=== PATIENT | female | born 1975 | race Native Hawaiian/Other Pacific Islander ===

== ENCOUNTER 2016-08-11 10:19 | Emergency (ER) | payer SELFPAY ==
[2016-08-11 10:22] VITALS: BP 112/74; PULSE 80; TEMP 97.8; O2SAT 100
[2016-08-11 10:23] VITALS: BMI 23.3
[2016-08-11 10:45] VITALS: RESP 18
--- NOTE | 2016-08-11 11:01 | ED PDOC ---
HPI: Female Pain Time Seen by Provider: 08/11/16 10:23 Chief Complaint (Nursing): Female Genitourinary Chief Complaint (Provider): Vaginal bleeding History Per: Patient Additional Complaint(s): 40 yo female, no PMH, presents to ED for evaluation of vaginal bleeding and abdominal cramping since last night, Pt is currently 9 weeks , . Past Medical History Reviewed: Nursing Documentation, Vital Signs Vital Signs: Last Vital Signs Temp 97.8 F 08/11/16 10:38 Pulse 80 08/11/16 10:38 Resp 18 08/11/16 10:38 BP 112/74 08/11/16 10:38 Pulse Ox 100 08/11/16 10:38 - Medical History PMH: No Chronic Diseases - Surgical History Surgical History: No Surg Hx - Family History Family History: States: No Known Family Hx - Living Arrangements Living Arrangements: With Family - Social History Current smoker - smoking cessation education provided: No Alcohol: None Drugs: Denies - Home Medications Home Medications: Ambulatory Orders Medication Instructions Recorded Ibuprofen [Motrin] 600 mg PO Q6 #20 tab 08/11/16 oxyCODONE/Acetaminophen [Percocet 1 ea PO Q6 PRN #5 tab 08/11/16 5/325 mg Tab] - Allergies Allergies/Adverse Reactions: Allergies Allergy/AdvReac Type Severity Reaction Status Date / Time No Known Allergies Allergy Verified 08/11/16 10:38 Review of Systems ROS Statement: Except As Marked, All Systems Reviewed And Found Negative Gastrointestinal: Positive for: Abdominal Pain Genitourinary Female: Positive for: Vaginal Bleeding Physical Exam - Reviewed Nursing Documentation Reviewed: Yes Vital Signs Reviewed: Yes - Physical Exam Appears: Positive for: Well, Non-toxic, No Acute Distress Head Exam: Positive for: ATRAUMATIC, NORMAL INSPECTION, NORMOCEPHALIC Skin: Positive for: Normal Color, Warm, DRY Eye Exam: Positive for: EOMI, Normal appearance, PERRL ENT: Positive for: Normal ENT Inspection Neck: Positive for: Normal, Painless ROM Cardiovascular/Chest: Positive for: Regular Rate, Rhythm Respiratory: Positive for: CNT, Normal Breath Sounds Gastrointestinal/Abdominal: Positive for: Normal Exam, Bowel Sounds, Soft Pelvic Exam: Positive for: External Exam Normal, Active Bleeding, Other ( Cervical OS closed) Back: Positive for: Normal Inspection Extremity: Positive for: Normal ROM Neurologic/Psych: Positive for: Alert, Oriented - Laboratory Results Result Diagrams: 08/11/16 11:40 - ECG O2 Sat by Pulse Oximetry: 100 Medical Decision Making Medical Decision Making: Pt declined analgesics at this time. CBC resulted WNL [id number] B+ US: Impression: There is a gestational sac with yolk sac and pole however no cardiac activity detected. . Collectively these findings of lack of cardiac activity and current vaginal bleeding suggest spontaneous . However followup serial serum beta HCG and serial pelvic ultrasound recommended confirm spontaneous ; or to assess for development of viable intrauterine gestation which is less likely Findings discussed with emergency room PA Aileen Foy at 12:45 p.m. with written down and read back verification. Case discussed with OB on-call, Dr. Delgado, who agreed Pt stable for discharge at this time and to follow up in clinic. Pt educated on plan of action and likely symptoms over next few days. Advised to return o ED if at anytime pain or bleeding become severe Disposition - Clinical Impression Clinical Impression: demise - Patient ED Disposition Is Patient to be Admitted: No - Disposition Disposition: Routine/Home Disposition Time: 13:52 Condition: STABLE Additional Instructions: Follow up in clinic! Return to ED if at anytime condition worsens Prescriptions: Ibuprofen [Motrin] 600 mg PO Q6 #20 tab oxyCODONE/Acetaminophen [Percocet 5/325 mg Tab] 1 ea PO Q6 PRN #5 tab PRN Reason: Pain, Severe (8-10) Instructions: Spontaneous Miscarriage (ED) Forms: [facility] (Jamaican) - POA Present On Arrival: None
[2016-08-11 11:37] LABS: RBC URINE 5 /hpf (0-3); URINE BACTERIA OCC (<OCC); URINE BILIRUBIN NEGATIVE (NEGATIVE); URINE BLOOD MODERATE (NEGATIVE); URINE COLOR YELLOW (YELLOW); URINE GLUCOSE (UA) NEG (Normal); URINE KETONE NEGATIVE (NEGATIVE); URINE LEUKOCYTE ESTERASE NEG Leu/uL (Negative); URINE PROTEIN NEGATIVE (NEGATIVE); WBC URINE 6 /hpf (0-5)
[2016-08-11 11:53] LABS: BASO # 0.1 K/uL (0.0-0.2); EOS # 0.2 K/uL (0.0-0.7); EOS % 2.7 % (0.0-4.0); LYMPH # 1.8 K/uL (1.0-4.3); LYMPH % 22.3 % (20.0-40.0); MEAN CELL VOLUME 79.7 fl (81.0-99.0); MEAN CORPUSCULAR HEMOGLOBIN 25.5 pg (27.0-31.0); MEAN PLATELET VOLUME 9.8 fl (7.2-11.7); MONO # 0.7 K/uL (0.0-0.8); NEUT # 5.2 K/uL (1.8-7.0); NRBC % 0.2 % (0.0-0.0); RED CELL DISTRIBUTION WIDTH 15.2 % (11.5-14.5)
--- NOTE | 2016-08-11 12:52 | US ---
HISTORY: Bleeding in a patient 9 weeks . COMPARISON: No prior study available for comparison TECHNIQUE: Transvaginal sonographic evaluation is performed. FINDINGS: Uterus is anteverted measuring approximately 8.8 x 6.2 x 4.8 cm. No myometrial masses. Cervix is closed measuring 4.66 cm. There is a intrauterine gestational sac. Measurements: Gestational sac: MSD equals 1.72 cm = 6 weeks 0 days Yolk sac: 0.13 cm pole: 0.32 cm = 6 weeks 0 days Heart motion: None detected Average ultrasound age: 6 weeks 0 days +/-0 weeks 3 days. Collectively these findings suggest spontaneous . However follow-up of serial serum beta HCG and serial pelvic ultrasound recommended to confirm spontaneous ; or less likely to assess for development of viable intrauterine gestation though this is less likely. . Right ovary measures 3.5 x 2.0 x 1.7 cm and exhibits arterial flow. Left ovary measures 3.1 x 2.8 x 2.4 cm and also exhibits arterial flow. Small cyst measuring 1.6 x 1.6 x 1.7 cm noted. Impression: There is a gestational sac with yolk sac and pole however no cardiac activity detected. . Collectively these findings of lack of cardiac activity and current vaginal bleeding suggest spontaneous . However followup serial serum beta HCG and serial pelvic ultrasound recommended confirm spontaneous ; or to assess for development of viable intrauterine gestation which is less likely Findings discussed with emergency room SELVIN Foy at 12:45 p.m. with written down and read back verification.
== END 2016-08-11 14:01 | disposition home or self-care (01) ==
LOC: H.ER 10:19
DX: O36.4XX0 Maternal care for intrauterine death, not applicable or unspecified (principal); Z3A.09 9 weeks gestation of pregnancy; O20.9 Hemorrhage in early pregnancy, unspecified

== ENCOUNTER 2017-10-29 12:56 | Emergency (ER) | payer SELFPAY ==
[2017-10-29 12:56] VITALS: BMI 23.1
[2017-10-29 13:05] VITALS: BP 123/60; PULSE 74; RESP 16; TEMP 98.3; O2SAT 99
--- NOTE | 2017-10-29 13:34 | ED PDOC ---
HPI: Female Pain Time Seen by Provider: 10/29/17 13:13 Chief Complaint (Nursing): Female Genitourinary Chief Complaint (Provider): Dysuria and Frequency History Per: Patient History/Exam Limitations: no limitations Onset/Duration Of Symptoms: Days (4-5 days) Current Symptoms Are (Timing): Still Present Associated Symptoms: denies: Fever, Nausea, Vomiting, Back Pain Alleviating Factors: None Additional Complaint(s): 41 year old female presents to the emergency department complaining of 4- days of dysuria and frequency. Patient states that she had similar symptoms back in August and was seen at [facility] (was not see yesterday contrary to triage note). She reports that she has been taking the previously prescribed pyridium with minimal relief and is also stating that her urine is now orange in color. Denies fever, vomiting, nausea, abdominal pain, back pain, flank pain. PMD: [facility] Abnormal Vaginal Bleeding: No Past Medical History Reviewed: Historical Data, Nursing Documentation, Vital Signs Vital Signs: Last Vital Signs Temp 98.3 F 10/29/17 12:59 Pulse 74 10/29/17 12:59 Resp 16 10/29/17 12:59 BP 123/60 10/29/17 12:59 Pulse Ox 99 10/29/17 12:59 - Medical History PMH: No Chronic Diseases - Surgical History Surgical History: No Surg Hx - Family History Family History: States: Unknown Family Hx - Living Arrangements Living Arrangements: With Family - Social History Current smoker - smoking cessation education provided: No Alcohol: None Drugs: Denies - Immunization History Hx Tetanus Toxoid Vaccination: No Hx Influenza Vaccination: No Hx Pneumococcal Vaccination: No - Home Medications Home Medications: Ambulatory Orders Medication Instructions Recorded Phenazopyridine HCl [Pyridium] 100 mg PO TID #6 tablet 08/18/17 Nitrofurantoin Macrocrystals 100 mg PO BID #13 cap 10/29/17 [Macrobid] - Allergies Allergies/Adverse Reactions: Allergies Allergy/AdvReac Type Severity Reaction Status Date / Time No Known Allergies Allergy Verified 08/18/17 09:05 Review of Systems Constitutional: Negative for: Fever, Chills Gastrointestinal: Negative for: Nausea, Vomiting, Abdominal Pain Genitourinary Female: Positive for: Dysuria, Frequency. Negative for: Hematuria , Pelvic Pain Physical Exam - Reviewed Nursing Documentation Reviewed: Yes Vital Signs Reviewed: Yes - Physical Exam Appears: Positive for: Non-toxic, No Acute Distress Skin: Positive for: Normal Color, Warm, Dry. Negative for: Rash Eye Exam: Positive for: Normal appearance, EOMI, PERRL Gastrointestinal/Abdominal: Positive for: Normal Exam, Bowel Sounds, Soft. Negative for: Tenderness, Mass, Guarding Back: Positive for: Normal Inspection. Negative for: L CVA Tenderness, R CVA Tenderness, Vertebral Tenderness Neurologic/Psych: Positive for: Alert (A&O x3), Oriented - Laboratory Results Urine POC: Negative - ECG O2 Sat by Pulse Oximetry: 99 (RA) Pulse Ox Interpretation: Normal Medical Decision Making Medical Decision Makin Initial Impression 41 year old male presenting with dysuria and frequency Initial Plan: * Upreg * Urine culture * Urinalysis * Reevaluation Pt. has been taking pyridium since the onset of symptoms. Will treat with abx pending urine c&s. Pt. informed of results and agrees with plan. Macrobid PO ordered. Documented by Soo Coles acting as a scribe for Tevin Brown PA-C. All medical record entries made by the Scribe were at my direction and personally dictated by me. I have reviewed the chart and agree that the record accurately reflects my personal performance of the history, physical exam, medical decision making, and the department course for this patient. I have also personally directed, reviewed, and agree with the discharge instructions and disposition. Disposition - Clinical Impression Clinical Impression: UTI (urinary tract infection) - Patient ED Disposition Is Patient to be Admitted: No - Disposition Referrals: [facility] [Outside] [facility] [Outside] Disposition: Routine/Home Disposition Time: 14:34 Condition: STABLE Additional Instructions: MIKEL NEVES, thank you for letting us take care of you today. Your provider was Shannon Carolina MD and you were treated for DIFFCULTY URINATING. The emergency medical care you received today was directed at your acute symptoms. If you were prescribed any medication, please fill it and take as directed. It may take several days for your symptoms to resolve. Return to the Emergency Department if your symptoms worsen, do not improve, or if you have any other problems. Please contact your doctor or call one of the physicians/clinics you have been referred to that are listed on the Patient Visit Information form that is included in your discharge packet. Bring any paperwork you were given at discharge with you along with any medications you are taking to your follow up visit. Our treatment cannot replace ongoing medical care by a primary care provider outside of the emergency department. Thank you for allowing the [facility] team to be part of your care today. If you had an X-Ray or CT scan: A Radiologist will review the ED reading if any change in treatment is needed we will contact you. If you had a blood, urine, or wound culture: It will take several days for the results, if any change in treatment is needed we will contact you. If you had an STI test: It will take 48 hours for the results. Please call after 1 week if you have not heard back. Prescriptions: Nitrofurantoin Macrocrystals [Macrobid] 100 mg PO BID #13 cap Instructions: Urinary Tract Infection, Adult (DC) Forms: [employer] (Monegasque) Print Language: CROATIAN
[2017-10-29 13:43] LABS: SQUAMOUS EPITHIAL 1 /hpf (0-5); URINE BACTERIA RARE (<OCC); URINE BILIRUBIN NEGATIVE (NEGATIVE); URINE BLOOD MODERATE (NEGATIVE); URINE CALCIUM OXALATE CRYSTALS MOD /hpf (<OCC); URINE CLARITY CLOUDY (Clear); URINE COLOR BLUE (YELLOW); URINE GLUCOSE (UA) NEG (Normal); URINE LEUKOCYTE ESTERASE NEG Leu/uL (Negative); URINE PROTEIN 30 mg/dL (NEGATIVE)
== END 2017-10-29 14:44 | disposition home or self-care (01) ==
LOC: H.ER 12:56
DX: N39.0 Urinary tract infection, site not specified (principal)

== ENCOUNTER 2018-01-05 09:44 | Emergency (ER) | payer SELFPAY ==
[2018-01-05 09:55] VITALS: BMI 22.8
[2018-01-05 09:57] VITALS: RESP 18; TEMP 98.2; O2SAT 100
--- NOTE | 2018-01-05 10:21 | ED PDOC ---
HPI: Female Pain Time Seen by Provider: 01/05/18 10:12 Chief Complaint (Nursing): Female Genitourinary Chief Complaint (Provider): incontinence History Per: Patient Additional Complaint(s): 42-year-old female presents with intermittent incontinence ongoing for a year. No associated abdominal pain, nausea, vomiting, diarrhea or constipation. Patient denies vaginal discharge or bleeding. She states she has not followed up with her transportation driver as of yet for this issue. Patient denies any dysuria or hematuria. PMD: [facility] Past Medical History Reviewed: Historical Data, Nursing Documentation, Vital Signs Vital Signs: Last Vital Signs Temp 98.2 F 01/05/18 09:55 Pulse 76 01/05/18 09:55 Resp 18 01/05/18 09:55 BP 97/59 L 01/05/18 09:55 Pulse Ox 100 01/05/18 09:55 - Medical History PMH: No Chronic Diseases - Surgical History Surgical History: No Surg Hx - Family History Family History: States: No Known Family Hx - Living Arrangements Living Arrangements: With Family - Social History Current smoker - smoking cessation education provided: No Alcohol: None Drugs: Denies - Home Medications Home Medications: Ambulatory Orders Medication Instructions Recorded Phenazopyridine HCl [Pyridium] 100 mg PO TID #6 tablet 08/18/17 Nitrofurantoin Macrocrystals 100 mg PO BID #13 cap 10/29/17 [Macrobid] - Allergies Allergies/Adverse Reactions: Allergies Allergy/AdvReac Type Severity Reaction Status Date / Time No Known Allergies Allergy Verified 01/05/18 10:30 Review of Systems ROS Statement: Except As Marked, All Systems Reviewed And Found Negative Constitutional: Negative for: Fever, Chills Respiratory: Negative for: Cough Gastrointestinal: Negative for: Nausea, Vomiting, Abdominal Pain, Diarrhea Genitourinary Female: Positive for: Incontinence. Negative for: Dysuria, Frequency, Hematuria, Vaginal Discharge, Vaginal Bleeding, Pelvic Pain Physical Exam - Reviewed Nursing Documentation Reviewed: Yes Vital Signs Reviewed: Yes - Physical Exam Appears: Positive for: Well, Non-toxic, No Acute Distress Skin: Positive for: Normal Color. Negative for: Rash Eye Exam: Positive for: Normal appearance Cardiovascular/Chest: Positive for: Regular Rate, Rhythm Respiratory: Positive for: Normal Breath Sounds. Negative for: Respiratory Distress Gastrointestinal/Abdominal: Positive for: Soft. Negative for: Tenderness, Distended, Guarding, Rebound Back: Negative for: L CVA Tenderness, R CVA Tenderness Extremity: Positive for: Normal ROM Neurologic/Psych: Positive for: Alert, Oriented - Laboratory Results Urine POC: Negative Urine dip results: Negative for: Leukocyte Esterase, Blood, Nitrate, Ketones, Glucose, Bilirubin, Protein - ECG O2 Sat by Pulse Oximetry: 100 Pulse Ox Interpretation: Normal Medical Decision Making Medical Decision Makin-year-old female with incontinence. Plan: Urine dip test Urine dip is negative, culture was sent. Patient states her transportation driver is [facility]. She was advised to call office to make an appointment for follow-up. Disposition - Clinical Impression Clinical Impression: Urinary incontinence - Patient ED Disposition Is Patient to be Admitted: No Counseled Patient/Family Regarding: Studies Performed, Diagnosis, Need For Followup, Rx Given - Disposition [facility] Disposition: Routine/Home Disposition Time: 12:01 Condition: STABLE Additional Instructions: Contact [facility] to arrange for follow-up visit as soon as possible. Instructions: Urinary Incontinence Forms: [employer] (Albanian)
[2018-01-05 12:42] VITALS: BP 102/71; PULSE 62
== END 2018-01-05 12:43 | disposition home or self-care (01) ==
LOC: H.ER 09:44
DX: R32 Unspecified urinary incontinence (principal)